=== PATIENT | male | born 1955 | race Caucasian/White ===

== ENCOUNTER 2016-08-01 16:13 | Outpatient (RCR) | payer BC ==
--- OUTSIDE RECORDS SUMMARY | 2016-07-11 13:41 | XMS REPORT | Continuity of Care Document ---
Author Author [facility] Organization [facility] Address Unknown Phone Unavailable Care Team Providers Care Clinical Law Professor Name Role Phone Antionette Kimeen PCP [phone] Source Comments Some departments are not documenting in the electronic medical record. If you do not see the information that you expected, contact Release of Information in the Health Information Management department at [phone] for further assistance in locating additional records.[facility] Active Allergies and Adverse Reactions No Known Allergies Current Medications Prescription Sig. Disp. Refills Start End Date Status Date MULTI-VITAMIN PO Take 1 Tab by mouth Active daily. CALCIUM PO Take 1 Tab by mouth Active daily. Aspirin 81 mg PO Tab Take 1 Tab by mouth 03/27/20 Active daily. Can resume this 11 medication after the leblanc catheter has been removed. oxyCODONE/acetaminophen Take 1-2 Tabs by mouth 30 Tab 0 03/27/20 Active (PERCOCET; ENDOCET; every 4 hours as needed 11 ROXICET) 5/325 mg PO for Pain. Max 12 tablet tabs/dayAvoid driving while taking this medication. hyoscyamine (LEVSIN) Place 1 Tab under tongue 30 Tab 2 03/27/20 Active 0.125 mg PO every 4 hours as needed 11 (bladder spasms). [place]-3 Fatty Acids (FISH Take by mouth. Can 03/27/20 Active OIL) PO Cap resume this medication 11 after the leblanc catheter has been removed. folic acid (FOLVITE) 1 mg Take 1 Tab by mouth 90 Tab 3 03/27/20 Active PO tablet daily. Can resume this 11 medication after the leblanc catheter has been removed. senna/docusate Take 1 Tab by mouth twice 40 Tab 0 03/27/20 Active (SENOKOT-S) 8.6/50 mg PO daily. 11 tablet polymyxin/bacitracin/patti/ Apply to affected area 1 Container 1 Active HC (CORTISPORIN) 1 % TP three times daily. 11 topical ointment oxybutynin XL (DITROPAN Take 1 Tab by mouth 14 Tab 0 03/27/20 Active XL) 10 mg PO tablet daily. 11 vitamins, B complex PO Take 1 Tab by mouth 90 Tab 03/27/20 Active Tab daily. Can resume this 11 medication after the leblanc catheter has been removed. vitamin E 100 unit PO Cap Take 1 Cap by mouth 03/27/20 Active daily. Can resume this 11 medication after the leblanc catheter has been removed. Active Problems Problem Noted Date Prostate cancer (HCC) 10/09/2010 Social History Tobacco Use Types Packs/Day Years Used Date Never Smoker Alcohol Use Drinks/Week oz/Week Comments Yes 4 Cans of 2.4 beer Last Filed Vital Signs Vital Sign Reading Time Taken Blood Pressure 117/68 03/27/2011 11:00 AM CDT Pulse 66 03/27/2011 11:00 AM CDT Temperature 36.8 C (98.2 F) 03/27/2011 11:00 AM CDT Respiratory Rate - - Height 1.727 m (5' 8") 03/26/2011 6:05 AM CDT Weight 91.2 kg (201 lb 1 oz) 03/26/2011 6:05 AM CDT Body Mass Index 30.58 03/26/2011 6:05 AM CDT Oxygen Saturation 97% 03/27/2011 11:00 AM CDT Plan of Care Health Maintenance Due Date Last Done Comments Physical (Comprehensive) 1962 Exam Pertussis Vaccine 1968 Tetanus Vaccine 1974 Colorectal Cancer 2007 Screening Influenza Vaccine 03/01/2016 Results from Last 3 Months Not on file
== END 2016-08-10 13:39 | disposition home or self-care (01) ==
PROVIDERS: ATTEND Orthopaedic Surgery
DX: M75.112 Incomplete rotator cuff tear or rupture of left shoulder, not specified as traumatic (principal)

== ENCOUNTER 2016-11-13 12:20 | Outpatient (CLI) | payer BC ==
[~2016-11-13] VITALS: Ht 172.7 cm; Wt 89.8 kg
[~2016-11-13 12:20] MED LIST: ASPI-586 PO
== END 2016-11-13 12:27 ==
LOC: PREOP 12:20
PROVIDERS: ATTEND Surgery
DX: Z01.818 Encounter for other preprocedural examination (principal); Z12.11 Encounter for screening for malignant neoplasm of colon

== ENCOUNTER 2016-11-16 12:55 | Day surgery (SDC) | payer BC ==
[~2016-11-16] VITALS: Ht 172.7 cm; Wt 89.8 kg
[2016-11-16] MEDS ORDERED: NS IV 1000 ML 1,000 ML IV STA (13:06)
[2016-11-16] MEDS ORDERED: NS IV 1000 ML 1,000 ML ONE (13:09)
[2016-11-16 13:44] VITALS: BP 134/94
[2016-11-16] MEDS ORDERED: PROPOFOL INJECTION 50 ML IV ONE (13:48)
[2016-11-16] MEDS ORDERED: MIDAZOLAM 2 MG/2 ML (VERSED) VIAL ONE (13:49)
[2016-11-16 14:45] VITALS: BP 107/79
--- NOTE | 2016-11-16 15:07 | Progress Note-Post Operative ---
Post-Operative Progess Note Surgeon (s)/Manager Diversity (s) Surgeon FLOR DUQUE DO Manager Diversity: na Pre-Operative Diagnosis screening colonoscopy Post-Operative Diagnosis ascending colon polyp Procedure & Operative Findings Date of Procedure 11/16/16 Procedure Performed/Findings colonoscopy with hot bx polypectomy Anesthesia Type per [facility] Estimated Blood Loss Estimated blood loss (mL): none Specimens/Packing Specimens Removed ascending colon polyp Packing: FLOR Moffett DO November 16, 2016 3:07 pm
--- NOTE | 2016-11-16 15:09 | Discharge Inst-Simple/Standard ---
Discharge Inst-Standard Patient Instructions/Follow Up Plan of Care/Instructions/FU: 2 weeks [place] Activity as Tolerated: Yes Discharge Diet: Regular Diet (high fiber) FLOR DUQUE DO November 16, 2016 3:09 pm
[2016-11-16 15:13] VITALS: BP 114/78
[2016-11-16 15:20] VITALS: BP 114/78
--- NOTE | 2016-11-17 15:24 | OPERATIVE REPORT ---
DATE OF SERVICE: 11/16/2016 PREOPERATIVE DIAGNOSIS: Screening colonoscopy. POSTOPERATIVE DIAGNOSIS: Colon polyp. PROCEDURE: Colonoscopy with hot biopsy polypectomy. SURGEON: Dr. Flor Judd ANESTHESIA: Per MDA. ESTIMATED BLOOD LOSS: None. COMPLICATIONS: None. SPECIMENS: Ascending colon polyp. INDICATIONS: The patient is a 61-year-old male due for screening colonoscopy. He understands risks and benefits of procedure and wished to proceed with procedure. Consent was signed and on the chart. DESCRIPTION OF PROCEDURE: The patient was taken to the endoscopy suite, placed in left lateral recumbent position. Timeout was performed. Digital rectal exam was performed. There were no palpable polyps, masses or ulcerations. Scope was inserted in the rectum and advanced all the way to the cecum with minimal difficulty. Prep was adequate. There were no polyps, masses or ulcerations within the cecum. The terminal ileum was intubated. No abnormalities visualized within the ileum. Scope was slowly retracted back into the colon. The scope was then slowly retracted back in the ascending colon, there was a small polyp which hot biopsy polypectomy was performed. Scope was then continued slowly retracted back. There were no polyps, masses or ulcerations within the remainder of the ascending colon, transverse colon, descending colon, sigmoid colon. In the rectum the scope was also retroflexed noting no other pathology. Scope was returned to its normal position slowly withdrawn until completely removed. The patient tolerated procedure well without any complications and was taken to the recovery room in stable condition. RECOMMENDATIONS: The patient will follow up in the office in 2 weeks to discuss pathology results. The patient will need a repeat colonoscopy in 5 years. If he has any problems prior to that, he should be reevaluated at that time. Job ID: [id number] DocumentID: [id number] Dictated Date: 11/17/2016 14:13:37 Manager Air Date: 11/17/2016 15:23:17 Dictated By: FLOR JUDD DO
== END 2016-11-16 15:20 | disposition home or self-care (01) ==
LOC: ENDO 12:55
PROVIDERS: ATTEND Surgery
DX: Z12.11 Encounter for screening for malignant neoplasm of colon (principal); D12.2 Benign neoplasm of ascending colon; I10 Essential (primary) hypertension

== ENCOUNTER → 2018-12-19 | Outpatient (CLI) | payer BC ==
--- NOTE | 2018-12-19 09:46 | Diagnostic Imaging Report ---
Indication: Right neck mass. Sonographic interrogation of an area of palpable abnormality in the right neck was performed. There is a small lymph node near this location measuring 7 mm x 4 mm x 8 mm. No other mass is identified. No fluid collection is identified. Impression: Subcentimeter lymph node right neck at the area of palpable abnormality. No other significant abnormality is detected. Dictated by: Dictated on workstation # [id number]
== END ==
LOC: RAD 08:13
PROVIDERS: ATTEND Surgery
DX: R22.1 Localized swelling, mass and lump, neck (principal)
CPT/HCPCS: 76536

== ENCOUNTER 2019-01-08 20:21 | Outpatient (CLI) | payer BC | END 2019-01-09 06:30 | disposition home or self-care (01) | LOC: SLEEP 20:21 | PROVIDERS: ATTEND Family Medicine | DX: G47.10 Hypersomnia, unspecified (principal); F39 Unspecified mood [affective] disorder; I10 Essential (primary) hypertension | CPT/HCPCS: 95810 ==

== ENCOUNTER 2022-06-12 05:33 | Outpatient (CLI) | payer MEDICARE ==
[~2022-06-12] VITALS: Ht 172.7 cm; Wt 103.0 kg
[2022-06-13] MEDS ORDERED: VALS40TA9 PO (11:25)
[2022-06-13] MEDS ORDERED: ASPI-999 PO (11:25)
== END 2022-06-13 11:29 ==
LOC: PREOP 05:33
PROVIDERS: ATTEND Surgery
DX: Z01.818 Encounter for other preprocedural examination (principal); Z86.010 Personal history of colon polyps

== ENCOUNTER 2022-06-19 07:51 | Day surgery (SDC) | payer BC, MEDICARE ==
[~2022-06-19] VITALS: Ht 172.7 cm; Wt 103.0 kg
[~2022-06-19 07:51] MED LIST changes: +ASPI-999 PO; +VALS40TA9 PO
[2022-06-19] MEDS ORDERED: LACTATED RINGERS 1,000 ML IV STA (08:17)
[2022-06-19] MEDS ORDERED: PROPOFOL INJECTION 50 ML IV ONE (08:33)
[2022-06-19] MEDS ORDERED: MIDAZOLAM 2 MG/2 ML (VERSED) VIAL ONE (08:33)
[2022-06-19 08:39] VITALS: BP 147/90
[2022-06-19] MEDS ORDERED: OMEG100032 PO (08:43)
--- NOTE | 2022-06-19 09:12 | Discharge Inst-Simple/Standard ---
Discharge Inst-Standard Patient Instructions/Follow Up Plan of Care/Instructions/FU: Follow-up in outpatient clinic with Dr. Judd in 2 weeks Activity as Tolerated: Yes Discharge Diet: Regular Diet FLOR JUDD DO Jun 19, 2022 09:12
[2022-06-19 09:15] VITALS: BP 105/60
[2022-06-19 09:20] VITALS: BP 109/60
[2022-06-19 10:03] VITALS: BP 109/60
--- NOTE | 2022-06-19 10:33 | Anesthesia-General Post-Op ---
MAC Patient Condition Mental Status/LOC: Same as Preop Cardiovascular: Satisfactory Nausea/Vomiting: Absent Respiratory: Satisfactory Pain: Controlled Complications: Absent Post Op Complications Complications None Follow Up Care/Instructions Patient Instructions None needed. Anesthesiology Discharge Order Discharge Order Patient is doing well, no complaints, stable vital signs, no apparent adverse anesthesia problems. No complications reported per nursing. REN WORRELL CRNA Jun 19, 2022 10:33
--- NOTE | 2022-06-19 18:06 | OPERATIVE REPORT ---
DATE OF SERVICE: 06/19/2022 PREOPERATIVE DIAGNOSIS: History of polyps. POSTOPERATIVE DIAGNOSES: Colon polyps, diverticulosis. PROCEDURE: Colonoscopy with hot biopsy polypectomy x6. SURGEON: Flor Judd DO ANESTHESIA: Per INTERMEDIATE MANAGER. ESTIMATED BLOOD LOSS: None. COMPLICATIONS: None. INDICATIONS: The patient is a 67-year-old male with history of colon polyps. He understands risks and benefits of procedure and wishes to proceed. Consent was in chart. DESCRIPTION OF PROCEDURE: The patient was taken to the endoscopy suite, placed in left lateral position. A timeout was performed. Digital rectal exam was performed. No palpable polyps, masses or ulcerations. Scope was inserted in the rectum and advanced all the way to cecum with minimal difficulty. Prep was adequate. Scope was retracted back. No polyps, masses, ulcerations in the cecum and ascending colon. A small polyp was present for which a hot biopsy polypectomy was performed. Scope was initially directed back and another small polyp present in the transverse colon for which a hot biopsy polypectomy was performed. Scope was then continuously directed back to the descending colon where 2 polyps that were small hot biopsy polypectomies were performed. Scope was then continued slowly retracted back into the sigmoid colon where another 2 polyps that were very small for which hot biopsy polypectomy was performed. The patient also with minimal amount of diverticulosis in the sigmoid. Once in the rectum, scope was retroflexed. There was no other pathology. Scope was returned to supine position and slowly withdrawn until completely removed. The patient tolerated the procedure well without any complications, taken to recovery room in stable condition. RECOMMENDATIONS: Will recommend high-fiber diet. Repeat colonoscopy in 5 years unless changes before that. A followup on pathology in 2 weeks. Job ID: [id number] DocumentID: [id number] Dictated Date: 06/19/2022 09:16:34 Internet Marketing Manager Date: 06/19/2022 18:03:00 Dictated By: FLOR JUDD DO
== END 2022-06-19 10:10 | disposition home or self-care (01) ==
LOC: ENDO 07:51
PROVIDERS: ATTEND Surgery
DX: Z12.11 Encounter for screening for malignant neoplasm of colon (principal); D12.2 Benign neoplasm of ascending colon; D12.3 Benign neoplasm of transverse colon; D12.4 Benign neoplasm of descending colon; D12.5 Benign neoplasm of sigmoid colon; K57.30 Diverticulosis of large intestine without perforation or abscess without bleeding; Z28.310 Unvaccinated for COVID-19

== ENCOUNTER 2023-06-10 20:59 | Emergency (ER) | payer MEDICARE ==
[~2023-06-10] VITALS: Ht 170 cm; Wt 100.0 kg
[~2023-06-10 20:59] MED LIST changes: +OMEG100032 PO
[2023-06-10 21:11] VITALS: BP 139/79
--- NOTE | 2023-06-10 21:24 | ED General ---
General Chief Complaint: General Problems/Pain Stated Complaint: EARBUD STUCK IN LT EAR Nursing Triage Note: pt to ft2 with c/o earbud cushion getting stuck in left ear. Source of Information: Patient Exam Limitations: No Limitations History of Present Illness Date Seen by Provider: Jun 10, 2023 Time Seen by Provider: 21:29 Initial Comments Patient is a 68-year-old male who presents ED with a earbud stuck in his left ear. This occurred 30 minutes ago. Patient was wearing ear buds. States the tip of the cushion remain in his left ear. Attempted to remove at home was unsuccessful. States that feels like it is in the ear canal. Denies any fever chills, nausea, vomiting, diarrhea. Allergies and Home Medications Allergies Coded Allergies: No Known Drug Allergies (Unverified , 11/13/16) Patient Home Medication List Home Medication List Reviewed: Yes Aspirin (Aspirin) 81 Mg Tab.chew, 81 MG PO DAILY, (Reported) Entered as Reported by: KINGSLEY MOORE on 06/13/22 1125 [place]-3/Dha/Epa/Fish Oil (Fish Oil 1,000 mg Softgel) 1,000 Mg (120 Mg-180 Mg) Capsule, 1,000 MG PO DAILY, (Reported) Entered as Reported by: ÁNGEL MONAHAN on 06/19/22 0843 Valsartan (Valsartan) 40 Mg Tablet, 40 MG PO DAILY, (Reported) Entered as Reported by: KINGSLEY MOORE on 06/13/22 1125 Review of Systems Review of Systems Constitutional: No chills, No diaphoresis, No malaise EENTM: ear pain; No hearing loss, No blurred vision, No double vision Respiratory: No cough, No dyspnea on exertion Cardiovascular: No chest pain Gastrointestinal: No abdominal pain, No constipation, No nausea, No vomiting Genitourinary: No decreased output, No discharge, No dysuria, No frequency Musculoskeletal: No back pain, No joint pain Skin: No change in color, No change in hair/nails All Other Systems Reviewed Negative Unless Noted: Yes Past Cyiwyie-Psmxoi-Ospycf Hx Patient Social History Tobacco Use?: No Substance use?: No Alcohol Use?: No Immunizations Up To Date Influenza Vaccine Up-to-Date: Yes; Up-to-Date First/Initial COVID19 Vaccinat: yes Second COVID19 Vaccination [place]: yes Third COVID19 Vaccination Date: yes Seasonal Allergies Seasonal Allergies: No Past Medical History Surgeries: Yes (WRIST,SHOULDER, BACK, KNEE SCOPE) Prostatectomy Respiratory: No Sleep Apnea Currently Using CPAP: No Cardiac: Yes Hypertension Neurological: No Reproductive Disorders: No Sexually Transmitted Disease: No HIV/AIDS: No Genitourinary: No Gastrointestinal: No Polyps Musculoskeletal: No Endocrine: No HEENT: No Loss of Vision: Bilateral Hearing Impairment: Denies Cancer: Yes Prostate What Type of Treatment Did You: Surgical Intervention Psychosocial: No Integumentary: No Blood Disorders: No Adverse Reaction/Blood Tranf: No (N/A) Physical Exam Vital Signs Vital Signs - First Documented 06/10/23 21:11 Temp 36.8 Pulse 88 Resp 18 B/P (MAP) 139/79 (99) Pulse Ox 97 O2 Delivery Room Air Capillary Refill : Less Than 3 Seconds Height, Weight, BMI Height: 5'8.00" Weight: 198lbs. 0.0oz. 89.393405xw; 34.00 BMI Method: General Appearance: No Apparent Distress, WD/WN Eyes: Bilateral Eye Normal Inspection, Bilateral Eye PERRL, Bilateral Eye EOMI HEENT: PERRL/EOMI, Normal ENT Inspection, Pharynx Normal, Other (Rubber earbud in left ear) Neck: Full Range of Motion, Normal Inspection, Non Tender, Supple Respiratory: Chest Non Tender, Lungs Clear, Normal Breath Sounds, No Accessory Muscle Use, No Respiratory Distress Cardiovascular: Regular Rate, Rhythm, No Edema, No Gallop, No JVD Gastrointestinal: Normal Bowel Sounds, No Organomegaly, No Pulsatile Mass Back: Normal Inspection, No CVA Tenderness Extremity: Normal Capillary Refill, Normal Inspection Neurologic/Psychiatric: Alert, Oriented x3, No Motor/Sensory Deficits, Normal Mood/Affect, semiconductor lab technician II-XII Norm as Tested Skin: Normal Color, Warm/Dry Procedures/Interventions Ear : Ear Location: Left Foreign Body Removal: FB in the Ear Canal Progress/Conclusion Successful attempt of removal of foreign body in left ear with alligator clamp. Progress/Results/Core Measures Suspected Sepsis SIRS Temperature: Pulse: 88 Respiratory Rate: 18 Blood Pressure 139 /79 Mean: 99 Results/Orders Vital Signs/I&O 06/10/23 21:11 Temp 36.8 Pulse 88 Resp 18 B/P (MAP) 139/79 (99) Pulse Ox 97 O2 Delivery Room Air Capillary Refill : Less Than 3 Seconds Blood Pressure Mean: 99 Departure Communication (PCP) Patient had a earbud stuck in his left ear. Successful removal 1 attempt with alligator clamp. No evidence of TM rupture. No ear canal swelling or redness. If any worsening symptoms such as loss in hearing, bloody drainage from the ear canal return back to [place]. Impression Primary Impression: Ear foreign body Disposition: HOME, SELF-CARE Condition: Stable Departure-Patient Inst. Decision time for Depature: 21:24 Referrals: AMISHA MATUTE MD (PCP/Family) Primary Care Physician Patient Instructions: General (DC) THANIA WOLF Jun 10, 2023 21:24
== END 2023-06-10 21:27 | disposition home or self-care (01) ==
LOC: EDUNIT# 20:59 → ER 21:01
DX: T16.2XXA Foreign body in left ear, initial encounter (principal)
CPT/HCPCS: 99281